=== PATIENT | female | born 1990 | race Caucasian/White ===

== ENCOUNTER 2017-10-09 05:14 | Emergency (ER) | payer SELFPAY ==
[~2017-10-09] VITALS: Ht 157.5 cm; Wt 91.2 kg
[2017-10-09 05:21] VITALS: Ht 157.5 cm; Wt 91.2 kg
[2017-10-09 11:08] VITALS: BP 124/67
== END 2017-10-09 11:53 | disposition home or self-care (01) ==
LOC: ED 05:14
DX: J20.9 Acute bronchitis, unspecified (principal); J45.909 Unspecified asthma, uncomplicated
CPT/HCPCS: J7613; J7644; Q0092

== ENCOUNTER 2017-10-12 22:21 | Emergency (ER) | payer SELFPAY ==
[2017-10-12 22:30] VITALS: BP 150/97
== END 2017-10-13 01:20 | disposition left against medical advice (07) ==
LOC: ED 22:21
DX: Z53.21 Procedure and treatment not carried out due to patient leaving prior to being seen by health care provider (principal)